=== PATIENT | female | born 1985 | race Caucasian/White ===

== ENCOUNTER 2017-05-09 16:38 | Emergency (ER) | payer OTHER ==
[~2017-05-09] VITALS: Ht 170.2 cm; Wt 114.4 kg
[~2017-05-09 16:38] MED LIST: CLARITIN10 M3 PO; DOXYCYCLINE HY100 MG PO; MOTRIN600 MG PO; TRAMADOL HCL50 MG PO; ZOFRAN ODT4 MG PO
[2017-05-09 17:50] VITALS: BP 127/93
== END 2017-05-09 17:51 | disposition home or self-care (01) ==
LOC: EME 16:38
DX: K59.00 Constipation, unspecified (principal); Z98.890 Other specified postprocedural states; Z88.2 Allergy status to sulfonamides
CPT/HCPCS: 74000; 99281; 99283

== ENCOUNTER 2017-09-27 11:20 | Emergency (ER) | payer OTHER ==
[~2017-09-27] VITALS: Ht 170.2 cm; Wt 114.4 kg
[2017-09-27] MEDS ORDERED: BENADRYL25 MG PO (13:27)
[2017-09-27] MEDS ORDERED: PEPCID20 MG PO (13:27)
[2017-09-27 13:41] VITALS: BP 121/56
== END 2017-09-27 13:42 | disposition home or self-care (01) ==
LOC: EME 11:20
DX: L25.9 Unspecified contact dermatitis, unspecified cause (principal); Z88.2 Allergy status to sulfonamides; F32.9 Major depressive disorder, single episode, unspecified
CPT/HCPCS: 71046; J1100

== ENCOUNTER 2018-05-03 08:45 | Emergency (ER) | payer OTHER ==
[~2018-05-03] VITALS: Ht 170.2 cm; Wt 114.0 kg
[~2018-05-03 08:45] MED LIST changes: +BENADRYL25 MG PO; +PEPCID20 MG PO
[2018-05-03 09:34] LABS: APPEARANCE SL.HAZY ((CLEAR)); BILIRUBIN NEGATIVE; BLOOD NEGATIVE; COLOR YELLOW ((YELLOW)); GLUCOSE (STRIP) NEGATIVE; KETONES NEGATIVE; LEUKOCYTES NEGATIVE; NITRITE NEGATIVE; PROTEIN (STRIP) NEGATIVE; SPECIFIC GRAVITY 1.023 (1.000-1.030); UROBILINOGEN 0.2 MG/DL (0.2-1.0)
[2018-05-03 09:44] LABS: HEMOGLOBIN 13.8 G/DL (11.9-15.5); MCHC 34.5 G/DL (30.0-36.0); PLATELET COUNT 234 K/uL (156-360); RBC DIS.WIDTH-CV 12.3 % (11.8-14.6); RBC DIS.WIDTH-SD 37.4 % (39-53); RED BLOOD COUNT 4.76 M/uL (3.80-5.20); WHITE BLOOD COUNT 13.1 K/uL (4.1-10.2)
[2018-05-03 09:46] LABS: BACTERIA 1+ /HPF; EPITHELIAL CELLS 2+ /HPF; MUCUS TRACE /LPF; RED BLOOD CELLS 0-5 /HPF (0-5); UCUL ADDED? NO; WHITE BLOOD CELLS 0-5 /HPF (0-5)
[2018-05-03 09:56] LABS: ALBUMIN 4.1 g/dL (3.2-4.8); CHLORIDE 107 mEq/L (99-109); POTASSIUM 3.9 mEq/L (3.7-5.4); SODIUM 138 mEq/L (136-147)
[2018-05-03 09:59] LABS: GLUCOSE 104 mg/dL (70-99); TOTAL PROTEIN 7.3 g/dL (6.4-8.3)
[2018-05-03 10:01] LABS: TOTAL BILIRUBIN 0.3 mg/dL (0.0-1.0)
[2018-05-03 10:02] LABS: ALKALINE PHOSPHATASE 104 IU/L (3-129); CREATININE 0.8 mg/dL (0.6-1.3); GFR ESTIMATE (CALCULATED) > 59 mL/min/
[2018-05-03 10:03] LABS: UREA NITROGEN (BUN) 8 mg/dL (9-23)
[2018-05-03 10:04] LABS: AST (GOT) 15 IU/L (2-34)
[2018-05-03 10:05] LABS: ALT (GPT) 17 IU/L (3-49)
[2018-05-03 10:12] LABS: QUANTITATIVE HCG < 4.0 MIU/ML
[2018-05-03 11:04] LABS: C DIFF TOXIN NEGATIVE (NEGATIVE)
[2018-05-03] MEDS ORDERED: CIPRO500 MG PO (11:20)
[2018-05-03] MEDS ORDERED: FLAGYL500 MG PO (11:20)
[2018-05-03] MEDS ORDERED: REGLAN10 MG PO (12:20)
[2018-05-03] MEDS ORDERED: ZOFRAN4 MG PO (12:20)
[2018-05-03 12:34] VITALS: BP 123/80
[2018-05-03 13:27] LABS: LIPASE 11 U/L (1.0-51.0)
== END 2018-05-03 12:34 | disposition home or self-care (01) ==
LOC: EME 08:45
PROVIDERS: Nurse Practitioner Family
DX: K52.9 Noninfective gastroenteritis and colitis, unspecified (principal); F32.9 Major depressive disorder, single episode, unspecified; F41.9 Anxiety disorder, unspecified; Z88.2 Allergy status to sulfonamides
CPT/HCPCS: 74177; 80053; 81003; 83630; 83690; 84702; 85027; 87425-90; 87493; 87506; 99281; 99285; J1885; J2405; J2765; J7030